=== PATIENT | female | born 1990 | race Caucasian/White ===

== ENCOUNTER 2017-06-08 18:00 | Emergency (ER) ==
[2017-06-08 18:02] VITALS: BP 136/101; TEMP 99; BMI 26.4
[2017-06-08] MEDS ORDERED: DIFLUCAN PO STA (18:11)
[2017-06-08 18:32] LABS: BASOPHILS # (AUTO) 0.1 K/uL (0-0.2); BASOPHILS % (AUTO) 0.6 % (0.0-3.0); EOSINOPHILS # (AUTO) 0.2 K/ul (0.0-0.7); EOSINOPHILS % (AUTO) 2.3 % (0.0-7.0); HEMATOCRIT 37.2 % (37.0-47.0); HEMOGLOBIN 12.6 g/dl (12.0-16.0); IMMATURE GRANULOCYTE % (AUTO) 0.2 % (0.0-5.0); LYMPHOCYTES # (AUTO) 2.4 K/uL (0.60-3.4); LYMPHOCYTES % (AUTO) 28.3 (10.0-50.0); MEAN CORPUSCULAR HEMOGLOBIN 27.8 pg (27.0-31.0); MEAN CORPUSCULAR HGB CONC 33.9 (31.8-35.4); MEAN CORPUSCULAR VOLUME 82.1 fl (81.0-99.0); MONOCYTES # (AUTO) 0.7 K/uL (0.4-2.0); MONOCYTES % (AUTO) 8.1 (0-10); NEUTROPHILS # (AUTO) 5.2 K/ul (2.0-6.9); NEUTROPHILS % (AUTO) 60.5; PLATELET COUNT 305 10^3/uL (140-440); RED BLOOD COUNT 4.53 10^6/ul (4.20-5.40); WHITE BLOOD COUNT 8.61 K/ul (4.6-10.2)
--- NOTE | 2017-06-08 18:46 | ED.PDOC ---
General ED Provider: Dr. FREDO PATEL Chief Complaint: Abdominal Pain Stated Complaint: abdominal pain Time Seen by Physician: 16:00 (seen with rebeca RN at all times also sheyla pa student was present at all times richmondcristo mitchell) Mode of Arrival: Walk-In Information Source: Patient Exam Limitations: No limitations Nursing and Triage Documentation Reviewed and Agree: Yes GI Complaint Exam - Abdominal Pain Complaint/Exam Onset: Gradual Duration: 1 day Symptoms Are: Still present Timing: Constant Initial Severity: Mild Current Severity: Mild Location of Pain: Diffuse Character: Reports: Dull Aggravating: Reports: None Alleviating: Reports: None Associated Signs and Symptoms: Denies: Diaphoresis, Fever, Cough, Chest pain, Dizziness, Back pain, Constipation, Blood in stool, Dysuria, Urinary frequency, Decreased urine output, Decreased appetite, Vaginal bleeding, Vaginal discharge , Nausea, Vomiting, Diarrhea, Sore throat, Decreased activity Related History: Reports: Similar episode AAA Risk Factors: Reports: None Cardiac Risk Factors: Reports: None Ectopic Risk Factors: Reports: None Ovarian Torsion Risk Factors: Reports: Reproductive age Surgical Obstruction Risk Factors: Reports: None Related Surgical History: Reports: None Patient Rh Status: Unknown Differential Diagnoses: Appendicitis, Bowel Obstruction, Constipation, Gastroenteritis, Pancreatitis, GB, UTI Quality Indicators for AMI: EKG in 10min. Quality Indicators for Cardiac Chest Pain: EKG in 10min. Quality Indicator For Non-Traumatic Chest Pain/Syncope: EKG Performed Review of Systems - Review Of Systems Constitutional: Reports: No symptoms Eyes: Reports: No symptoms Ears, Nose, Mouth, Throat: Reports: No symptoms Respiratory: Reports: No symptoms Cardiac: Reports: No symptoms GI: Reports: Abdominal pain : Reports: No symptoms Musculoskeletal: Reports: No symptoms Skin: Reports: Rash (groin right and left) Neurological: Reports: No symptoms Endocrine: Reports: No symptoms Hematologic/Lymphatic: Reports: No symptoms All Other Systems: Reviewed and Negative Past Medical History - Past Medical History Previously Healthy: Yes Endocrine: Reports: None Cardiovascular: Reports: None Respiratory: Reports: None Hematological: Reports: None Gastrointestinal: Reports: None Genitourinary: Reports: None Neuro/Psych: Reports: Anxiety, Depression Musculoskeletal: Reports: None Cancer: Reports: None Last Menstrual Period: 2 days ago - Surgical History General Surgical History: Reports: None - Family History Family History: Reports: None - Social History Smoking Status: Current every day smoker Hx Substance Use: No Alcohol Screening: Occasionally Physical Exam - Physical Exam Appearance: Well-appearing Critical Care Note - Critical Care Note Total Time (mins): 0 Course - Course Hematology/Chemistry: 06/08/17 18:21 06/08/17 18:21 Orders, Labs, Meds: Lab Review 06/08/17 06/08/17 18:21 18:56 WBC 8.61 RBC 4.53 Hgb 12.6 Hct 37.2 MCV 82.1 MCH 27.8 MCHC 33.9 RDW Coeff of Isabelle 13.3 Plt Count 305 Immature Gran % (Auto) 0.2 Neut % (Auto) 60.5 Lymph % (Auto) 28.3 Perkins % (Auto) 8.1 Eos % (Auto) 2.3 Baso % (Auto) 0.6 Immature Gran # (Auto) 0.0 Neut # 5.2 Lymph # 2.4 Perkins # 0.7 Eos # 0.2 Baso # 0.1 Sodium 139 Potassium 3.4 L Chloride 107 Carbon Dioxide 21 Anion Gap 14.4 BUN 9 Creatinine 0.70 Estimated GFR (MDRD) 100.00 BUN/Creatinine Ratio 12.85 Glucose 85 Calcium 9.0 Total Bilirubin 0.76 AST 12 L ALT 10 L Alkaline Phosphatase 53 Total Protein 7.0 Albumin 4.2 Globulin 2.8 Albumin/Globulin Ratio 1.50 Amylase 59 Lipase 28 Urine Test Negative Orders Category Date Time Status AMYLASE Stat LAB 06/08/17 18:21 Completed CBC W/ AUTO DIFF Stat LAB 06/08/17 18:21 Completed COMPREHENSIVE METABOLIC PANEL Stat LAB 06/08/17 18:21 Completed LIPASE Stat LAB 06/08/17 18:21 Completed URINE Stat LAB 06/08/17 18:56 Completed Fluconazole [Diflucan] MEDS 06/08/17 18:11 Discontinued 100 mg PO ONCE STA CT ABDOMEN/PELVIS WO CONTRAST Stat RADS 06/08/17 18:20 Completed Medications Discontinued Medications Generic Name Dose Route Start Last Admin Trade Name Freq PRN Reason Stop Dose Admin Fluconazole 100 mg 06/08/17 18:11 06/08/17 18:18 Diflucan PO 06/08/17 18:12 100 mg ONCE STA Administration Vital Signs: Temp Pulse Resp BP Pulse Ox 06/08/17 18:00 99.0 F 83 20 136/101 H 98 Departure - Departure Time of Disposition: 20:04 Disposition: HOME SELF-CARE Discharge Problem: Abdominal pain, Intertrigo Instructions: Abdominal Pain (ED) Condition: Good Pt referred to PMD for follow-up: No Additional Instructions: Please call your Family Physician as soon as possible to schedule a follow-up appointment. Allergies/Adverse Reactions: Allergies No Known Allergies Allergy (Verified 06/08/17 18:03) Home Medications: Ambulatory Orders 1 [No Reported Medications] 05/01/16 Disposition Discussed With: Patient
[2017-06-08 18:51] LABS: ALBUMIN 4.2 g/dL (3.4-5.0); ALBUMIN/GLOBULIN RATIO 1.5; ANION GAP 14.4; BILIRUBIN,TOTAL 0.76 mg/dL (0.00-1.20); BUN/CREATININE RATIO 12.85; CREATININE 0.7 mg/dL (0.60-1.30); POTASSIUM 3.4 mmol/L (3.5-5.10)
[2017-06-08 19:04] LABS: URINE PREGNANCY INTERNAL QC INTERNAL QC VALID
--- NOTE | 2017-06-08 19:56 | CT ---
Exam: CT scan of the abdomen pelvis without contrast. Date: 06/08/2017. Comparison: 06/23/2015. HISTORY: Abdominal pain. TECHNIQUE: Helical scan of the abdomen pelvis was performed without contrast. FINDINGS: The lung bases are clear. The lumbar spine and bony pelvis are within normal limits. The spleen and liver have a uniform attenuation; there is redemonstration of a 3.3 x 2.9 cm cyst in the anterior segment right lobe of the liver. It measures 29 HU. The gallbladder, stomach, pancrea s and adrenal glands are normal. The kidneys have a normal morphology. No calculi or hydronephrosi s is seen. No retroperitoneal adenopathy is present. Aorta does not exceed 3 cm. The small bowel and appendix are normal. The colon, pelvic sidewall and bladder are normal. There is no free pelvi c fluid. The uterus and adnexa are normal. The rectum inguinal regions are normal. Impression: No acute findings in the abdomen or pelvis. There is demonstration of a 3.3 x 2.9 cm p ossible cyst in the liver although the attenuation values are higher than commonly encountered. Thi s could represent proteinaceous material within the fluid. Ultrasound would be recommended for defi nitive evaluation.
== END 2017-06-08 20:04 | disposition home or self-care (01) ==
LOC: ED 18:00
DX: R10.84 Generalized abdominal pain (principal); L30.4 Erythema intertrigo; F17.210 Nicotine dependence, cigarettes, uncomplicated
CPT/HCPCS: 36415; 80053; 81025; 82150; 83690; 85025; 99283

== ENCOUNTER 2018-05-22 19:03 | Emergency (ER) ==
[2018-05-22] MEDS ORDERED: TENIVAC IM ONE (19:24)
[2018-05-22 19:25] VITALS: BP 121/85; TEMP 98.1; BMI 24.0
--- NOTE | 2018-05-22 19:27 | ED.PDOC ---
General ED Provider: Dr. PACO GONGORA-ER Chief Complaint: Non-specific Complaint Stated Complaint: i got cut by a wire ys--now its red Time Seen by Physician: 19:20 Mode of Arrival: Walk-In Information Source: Patient Exam Limitations: No limitations Nursing and Triage Documentation Reviewed and Agree: Yes Does patient meet sepsis criteria?: No System Inflammatory Response Syndrome: Not Applicable Sepsis Protocol: For patient's 13 years and over: Temp is 96.8 and below OR 101 and greater Pulse >90 BPM Resp >20/minute Acutely Altered Mental Status Are patient's symptoms suggestive of a new infection, such as: -Pneumonia -Skin, Soft Tissue -Endocarditis -UTI -Bone, Joint Infection -Implantable Device -Acute Abdominal Infection -Wound Infection -Meningitis -Blood Stream Catheter Infection -Unknown Skin Complaint Exam - Skin/Soft Tissue Complaint/Exam Onset/Duration: today Symptoms Are: Still present Timing: Constant Initial Severity: Mild Current Severity: Mild Location: right calf Character: Reports: Redness, Swelling, Raised, Painful Aggravating: Reports: None Alleviating: Reports: None Associated Signs and Symptoms: Reports: Tenderness Related History: Reports: Recent trauma Related Surgical History: Reports: None Recent Exposure to Others w/Similar Symptoms: No Skin Findings: Present: Erythema Joint Tenderness Present: No Differential Diagnoses: Cellulitis, Infection Review of Systems - Review Of Systems Constitutional: Reports: No symptoms Eyes: Reports: No symptoms Ears, Nose, Mouth, Throat: Reports: No symptoms Respiratory: Reports: No symptoms Cardiac: Reports: No symptoms GI: Reports: No symptoms : Reports: No symptoms Musculoskeletal: Reports: No symptoms Skin: Reports: Rash Neurological: Reports: No symptoms Endocrine: Reports: No symptoms Hematologic/Lymphatic: Reports: No symptoms All Other Systems: Reviewed and Negative Past Medical History - Past Medical History Previously Healthy: Yes Endocrine: Reports: None Cardiovascular: Reports: None Respiratory: Reports: None Hematological: Reports: None Gastrointestinal: Reports: None Genitourinary: Reports: None Neuro/Psych: Reports: Anxiety, Depression Musculoskeletal: Reports: None Cancer: Reports: None Last Menstrual Period: 4 DAYS AGO - Surgical History General Surgical History: Reports: None - Family History Family History: Reports: None - Social History Smoking Status: Current every day smoker, Light tobacco smoker Hx Substance Use: No Alcohol Screening: Occasionally - Immunizations Tetanus Shot up to Date: (UNKNOWN) Physical Exam - Physical Exam Appearance: Well-appearing Pain Distress: Mild Eyes: CARLEEN, EOMI, Conjunctiva clear ENT: Ears normal, Nose normal, Oropharynx normal Neck: Supple Respiratory: Airway patent Cardiovascular: RRR GI/: Soft Musculoskeletal: Normal strength Skin: Warm Neurological: Alert Psychiatric: Affect appropriate Critical Care Note - Critical Care Note Total Time (mins): 0 Course - Course Orders, Labs, Meds: Orders Category Date Time Status Tetanus and Diphtheria Tox/Pf [Tenivac] MEDS 05/22/18 19:24 Discontinued 0.5 ml IM .ONCE ONE Medications Discontinued Medications Generic Name Dose Route Start Last Admin Trade Name Freq PRN Reason Stop Dose Admin Tetanus/Diphtheria Toxoids Adsorbed 0.5 ml 05/22/18 19:24 Tenivac IM 05/22/18 19:25 .ONCE ONE Vital Signs: Temp Pulse Resp BP Pulse Ox 05/22/18 19:15 98.1 F 82 18 121/85 98 Departure - Departure Time of Disposition: 19:26 Disposition: HOME SELF-CARE Discharge Problem: Puncture wound Instructions: Puncture Wound (ED) Condition: Good Pt referred to PMD for follow-up: No IPMP verified?: No Additional Instructions: clindamycin 150mg tid x 7 days---f/u with pcp Allergies/Adverse Reactions: Allergies No Known Allergies Allergy (Verified 05/22/18 19:20) Home Medications: Ambulatory Orders 1 [No Reported Medications] 05/01/16 Transfer Form Completed: No Disposition Discussed With: Patient
== END 2018-05-22 19:58 | disposition home or self-care (01) ==
LOC: ED 19:03
DX: S81.831A Puncture wound without foreign body, right lower leg, initial encounter (principal); W26.8XXA Contact with other sharp object(s), not elsewhere classified, initial encounter; F17.210 Nicotine dependence, cigarettes, uncomplicated
CPT/HCPCS: 90471; 90714; 99283